=== PATIENT | male | born 1940 | race Caucasian/White ===

== ENCOUNTER 2018-07-20 10:41 | Emergency (ER) | payer MEDICARE ==
[2018-07-20] MEDS ORDERED: Sodium Chloride 0.9% 10 ML Syringe FLUSH PRN (11:29)
[2018-07-20] MEDS ORDERED: Labetalol 100 MG/20 ML MDV IVPUSH ONE (11:29)
[2018-07-20] MEDS ORDERED: Furosemide 40 MG/4 ML VIAL IVPUSH ONE (11:30)
--- NOTE | 2018-07-20 11:33 | EDM.PDOC ---
ED HPI GENERAL MEDICAL PROBLEM - General Chief Complaint: Cardiovascular Problem Stated Complaint: HIGH BP Time Seen by Provider: 07/20/18 11:30 Source of Information: Reports: Patient History Limitations: Reports: No Limitations - History of Present Illness INITIAL COMMENTS - FREE TEXT/NARRATIVE: pt had a home health nurse check his bp and found it to be very high and for that reason he was brought to the er. He did not feel dizzy or have a headache. Onset: Today Duration: Hour(s): Location: Reports: Chest, Other (bp is very elevated. ) Associated Symptoms: Reports: No Other Symptoms - Related Data Allergies Allergy/AdvReac Type Severity Reaction Status Date / Time No Known Allergies Allergy Verified 07/20/18 11:03 Home Meds: Home Meds Furosemide 40 mg PO DAILY 09/24/13 [History] Aspirin [Adult Low Dose Aspirin EC] 81 mg PO DAILY 11/07/13 [History] Metoprolol Succinate [Toprol XL 100mg] 100 mg PO DAILY 11/07/13 [History] Potassium Chloride [Klor-Con 10] 20 meq PO DAILY 11/07/13 [History] Warfarin Sliding Scale [Coumadin Sliding Scale] 5 mg PO ASDIRECTED 11/07/13 [ History] metFORMIN [Glucophage] 1,000 mg PO BIDM 11/07/13 [History] Lisinopril 10 mg PO DAILY 07/20/18 [History] Simvastatin 20 mg PO DAILY 07/20/18 [History] Past Medical History Cardiovascular History: Reports: Hypertension, Other (See Below) Other Cardiovascular History: on coumadin; unknown why Genitourinary History: Reports: Acute Renal Failure, Other (See Below) Other Genitourinary History: had an episode of acute kidney failure Musculoskeletal History: Reports: Arthritis - Past Surgical History Head Surgeries/Procedures: Reports: None Cardiovascular Surgical History: Reports: None Male Surgical History: Reports: None Musculoskeletal Surgical History: Reports: None Dermatological Surgical History: Reports: None Social & Family History - Family History Family Medical History: Noncontributory - Tobacco Use Smoking Status *Q: Former Smoker Years of Tobacco use: 20 Packs/Tins Daily: 1 Used Tobacco, but Quit: Yes Month/Year Tobacco Last Used: 06/1977 Second Hand Smoke Exposure: No - Caffeine Use Caffeine Use: Reports: Coffee, Soda - Recreational Drug Use Recreational Drug Use: No ED ROS GENERAL - Review of Systems Review Of Systems: See Below Constitutional: Reports: No Symptoms HEENT: Reports: No Symptoms Respiratory: Reports: No Symptoms Cardiovascular: Reports: Other (bp is very high over 200 systolic. ) Endocrine: Reports: No Symptoms GI/Abdominal: Reports: No Symptoms : Reports: No Symptoms Musculoskeletal: Reports: No Symptoms Skin: Reports: No Symptoms Neurological: Reports: No Symptoms ED EXAM, GENERAL - Physical Exam Exam: See Below Free Text/Narrative:: pt arrived with a elevated bp. His systolic was over 200. He had been taking his meds on a regular basis. Exam Limited By: No Limitations General Appearance: Alert, No Apparent Distress, Anxious, Other (pupils are equal and reactive. ) Ears: Normal TMs Nose: Normal Inspection Throat/Mouth: Normal Inspection Head: Atraumatic Neck: Normal Inspection Respiratory/Chest: No Respiratory Distress Cardiovascular: Regular Rate, Rhythm, Other ( bp is markedly elevated. ) GI/Abdominal: Soft, Non-Tender (Male) Exam: Deferred Rectal (Males) Exam: Deferred Back Exam: Normal Inspection Extremities: Normal Inspection Neurological: Alert, Oriented, Normal Cognition Psychiatric: Normal Affect Course - Vital Signs Last Recorded V/S: Last Vital Signs Temp 34.4 C L 07/20/18 11:01 Pulse 69 07/20/18 13:15 Resp 16 07/20/18 13:15 BP 154/61 H 07/20/18 13:15 Pulse Ox 99 07/20/18 13:15 - Orders/Labs/Meds Orders: Active Orders 24 hr Category Date Time Status Saline Lock Insert [OM.PC] Routine Oth 07/20/18 11:29 Ordered Labs: Laboratory Tests 07/20/18 07/20/18 07/20/18 Range/Units 11:40 11:40 11:40 WBC 5.6 (4.5-11.0) K/uL RBC 3.37 L (4.30-5.90) M/uL Hgb 9.7 L (12.0-15.0) g/dL Hct 29.2 L (40.0-54.0) % MCV 87 (80-98) fL MCH 29 (27-31) pg MCHC 33 (32-36) % Plt Count 179 (150-400) K/uL Neut % (Auto) 71 H (36-66) % Lymph % (Auto) 18 L (24-44) % [place] % (Auto) 8 H (2-6) % Eos % (Auto) 4 (2-4) % Baso % (Auto) 0 (0-1) % PT 24.4 H (9.5-12.0) sec INR 2.33 H D (0.80-1.20) Sodium 143 (140-148) mmol/L Potassium 5.6 H (3.6-5.2) mmol/L Chloride 109 H (100-108) mmol/L Carbon Dioxide 25 (21-32) mmol/L Anion Gap 14.6 H (5.0-14.0) mmol/L BUN 48 H (7-18) mg/dL Creatinine 2.0 H (0.8-1.3) mg/dL Est Cr Clr Drug Dosing 31.91 mL/min Estimated GFR (MDRD) 33 L (>60) Glucose 126 H (74-106) mg/dL Calcium 9.7 (8.5-10.1) mg/dL Iron (65-175) ug/dL TIBC (250-450) ug/dl % Saturation (20-55) % Total Bilirubin 0.6 D (0.2-1.0) mg/dL AST 21 (15-37) U/L ALT 24 (12-78) U/L Alkaline Phosphatase 65 D (46-116) U/L Total Protein 6.6 (6.4-8.2) g/dL Albumin 3.4 (3.4-5.0) g/dL Globulin 3.2 (2.3-3.5) g/dL Albumin/Globulin Ratio 1.1 L (1.2-2.2) Urine Color Urine Appearance Urine pH (4.5-8.0) Ur Specific [place]ran (1.008-1.030) Urine Protein (NEGATIVE) mg/dL Urine Glucose (UA) (NEGATIVE) mg/dL Urine Ketones (NEGATIVE) mg/dL Urine Occult Blood (NEGATIVE) Urine Nitrite (NEGAITVE) Urine Bilirubin (NEGATIVE) Urine Urobilinogen (NORMAL) mg/dL Ur Leukocyte Esterase (NEGATIVE) Urine RBC (0-5) Urine WBC (0-5) Ur Epithelial Cells Amorphous Sediment Urine Bacteria Urine Mucus 07/20/18 07/20/18 Range/Units 11:40 12:20 WBC (4.5-11.0) K/uL RBC (4.30-5.90) M/uL Hgb (12.0-15.0) g/dL Hct (40.0-54.0) % MCV (80-98) fL MCH (27-31) pg MCHC (32-36) % Plt Count (150-400) K/uL Neut % (Auto) (36-66) % Lymph % (Auto) (24-44) % [place] % (Auto) (2-6) % Eos % (Auto) (2-4) % Baso % (Auto) (0-1) % PT (9.5-12.0) sec INR (0.80-1.20) Sodium (140-148) mmol/L Potassium (3.6-5.2) mmol/L Chloride (100-108) mmol/L Carbon Dioxide (21-32) mmol/L Anion Gap (5.0-14.0) mmol/L BUN (7-18) mg/dL Creatinine (0.8-1.3) mg/dL Est Cr Clr Drug Dosing mL/min Estimated GFR (MDRD) (>60) Glucose (74-106) mg/dL Calcium (8.5-10.1) mg/dL Iron 63 L (65-175) ug/dL TIBC 210 L (250-450) ug/dl % Saturation 30 (20-55) % Total Bilirubin (0.2-1.0) mg/dL AST (15-37) U/L ALT (12-78) U/L Alkaline Phosphatase (46-116) U/L Total Protein (6.4-8.2) g/dL Albumin (3.4-5.0) g/dL Globulin (2.3-3.5) g/dL Albumin/Globulin Ratio (1.2-2.2) Urine Color Yellow Urine Appearance Slightly cloudy Urine pH 7.0 (4.5-8.0) Ur Specific [place] 1.005 L (1.008-1.030) Urine Protein 100 H (NEGATIVE) mg/dL Urine Glucose (UA) Normal (NEGATIVE) mg/dL Urine Ketones Negative (NEGATIVE) mg/dL Urine Occult Blood Large (NEGATIVE) Urine Nitrite Negative (NEGAITVE) Urine Bilirubin Negative (NEGATIVE) Urine Urobilinogen Normal (NORMAL) mg/dL Ur Leukocyte Esterase Negative (NEGATIVE) Urine RBC 0-5 (0-5) Urine WBC Not seen (0-5) Ur Epithelial Cells Not seen Amorphous Sediment Not seen Urine Bacteria Not seen Urine Mucus Not seen Meds: Medications Discontinued Medications Generic Name Dose Route Start Last Admin Trade Name Chuy PRN Reason Stop Dose Admin Furosemide 40 mg 07/20/18 11:30 07/20/18 12:27 Lasix IVPUSH 07/20/18 11:31 40 mg ONETIME ONE Administration Labetalol HCl 20 mg 07/20/18 11:29 07/20/18 12:34 Normodyne IVPUSH 07/20/18 11:30 Not Given ONETIME ONE Protocol Labetalol HCl 20 mg 07/20/18 12:15 07/20/18 12:32 Normodyne IVPUSH 07/20/18 12:16 20 mg ONETIME ONE Administration Protocol Lisinopril 2.5 mg 07/20/18 12:50 07/20/18 12:56 Prinivil PO 07/20/18 12:51 2.5 mg ONETIME ONE Administration Sodium Chloride 10 ml 07/20/18 11:29 Saline Flush FLUSH ASDIRECTED PRN Keep Vein Open - Re-Assessments/Exams Free Text/Narrative Re-Assessment/Exam: 07/21/18 07:52 pt was found to have a elevate k. His hg was 9.7 with no previous to compare with His creatnine is 2 with a elevated bun. He is on k. Departure - Departure Time of Disposition: 12:56 Disposition: Home, Self-Care 01 Condition: Fair Clinical Impression: Hypertension, Hyperkalemia, Anemia, Iron deficiency Instructions: Hypertension, [id number] Referrals: Gustavo Robles MD [Primary Care Provider] - Forms: ED Department Discharge Care Plan Goals: appt with Dr Robles in 4-5 days, increase lisinopril to 12.5 mg. --daily, stop potassium , Pt will be taking his usual lisinopril plus a 2.5 tablet. - My Orders Last 24 Hours: My Active Orders 07/20/18 11:29 Saline Lock Insert [OM.PC] Routine - Assessment/Plan Last 24 Hours: My Active Orders 07/20/18 11:29 Saline Lock Insert [OM.PC] Routine
[2018-07-20] MEDS ORDERED: Labetalol 20 MG/4 ML Syringe IVPUSH ONE (12:15)
[2018-07-20] MEDS ORDERED: Lisinopril 10 MG Tab PO ONE (12:50)
== END 2018-07-20 13:29 | disposition home or self-care (01) ==
LOC: JP.ED 10:41
DX: I10 Essential (primary) hypertension (principal); E87.5 Hyperkalemia; D50.9 Iron deficiency anemia, unspecified; Z87.891 Personal history of nicotine dependence; Z79.899 Other long term (current) drug therapy
CPT/HCPCS: 36415; 80053; 81001; 83550; 85025; 85610; 96374; 96375; 99284; A9270; J1940; J3490

== ENCOUNTER 2019-05-07 10:07 | Emergency (ER) | payer MEDICARE ==
[2019-05-07] MEDS ORDERED: LORazepam 0.5 MG Tab PO ONE (10:52)
--- NOTE | 2019-05-07 10:56 | EDM.PDOC ---
ED HPI GENERAL MEDICAL PROBLEM - General Chief Complaint: Cardiovascular Problem Stated Complaint: HYPERTENSION Time Seen by Provider: 05/07/19 10:31 Source of Information: Reports: Patient, Family, Old Records, RN Notes Reviewed History Limitations: Reports: No Limitations - History of Present Illness INITIAL COMMENTS - FREE TEXT/NARRATIVE: 78-year-old gentleman presents emergency department with a complaint of elevated blood pressure, he was being evaluated in the clinic by podiatry found to have elevated blood pressure in the 220 systolically was sent to the emergency department for further evaluation. He has no complaints at this time did take his blood pressure medications this morning at 1AM this is his usual wake up time - Related Data Allergies Allergy/AdvReac Type Severity Reaction Status Date / Time No Known Allergies Allergy Verified 07/20/18 11:03 Home Meds: Home Meds Furosemide 40 mg PO DAILY 09/24/13 [History] Aspirin [Adult Low Dose Aspirin EC] 81 mg PO DAILY 11/07/13 [History] Metoprolol Succinate [Toprol XL 100mg] 100 mg PO DAILY 11/07/13 [History] Warfarin Sliding Scale [Coumadin Sliding Scale] 5 mg PO ASDIRECTED 11/07/13 [ History] metFORMIN [Glucophage] 1,000 mg PO BIDM 11/07/13 [History] Lisinopril 20 mg PO DAILY 07/20/18 [History] Simvastatin 20 mg PO DAILY 07/20/18 [History] Past Medical History Cardiovascular History: Reports: Arrhythmia (Atrial flutter), High Cholesterol, Hypertension, Other (See Below) Other Cardiovascular History: on coumadin; unknown why Genitourinary History: Reports: Acute Renal Failure, Other (See Below) Other Genitourinary History: had an episode of acute kidney failure Musculoskeletal History: Reports: Arthritis - Infectious Disease History Infectious Disease History: Reports: Chicken Pox - Past Surgical History Head Surgeries/Procedures: Reports: None Cardiovascular Surgical History: Reports: None Male Surgical History: Reports: None Musculoskeletal Surgical History: Reports: None Dermatological Surgical History: Reports: None Social & Family History - Family History Family Medical History: Noncontributory - Tobacco Use Smoking Status *Q: Former Smoker Used Tobacco, but Quit: Yes Month/Year Tobacco Last Used: many years ago - Caffeine Use Caffeine Use: Reports: Coffee, Soda - Recreational Drug Use Recreational Drug Use: No ED ROS GENERAL - Review of Systems Review Of Systems: See Below Constitutional: Reports: No Symptoms HEENT: Reports: No Symptoms Respiratory: Reports: No Symptoms Cardiovascular: Reports: No Symptoms GI/Abdominal: Reports: No Symptoms ED EXAM, GENERAL - Physical Exam Exam: See Below Exam Limited By: No Limitations General Appearance: Alert, WD/WN, No Apparent Distress Throat/Mouth: No Airway Compromise Neck: Normal Inspection, Supple, Non-Tender, Full Range of Motion Respiratory/Chest: No Respiratory Distress, Lungs Clear, Normal Breath Sounds, No Accessory Muscle Use, Chest Non-Tender Cardiovascular: Regular Rate, Rhythm, No Murmur Course - Vital Signs Last Recorded V/S: Last Vital Signs Temp 97.9 F 05/07/19 10:26 Pulse 63 05/07/19 11:53 Resp 18 05/07/19 11:53 BP 186/80 H 05/07/19 11:53 Pulse Ox 96 05/07/19 11:53 - Orders/Labs/Meds Labs: Laboratory Tests 05/07/19 05/07/19 05/07/19 Range/Units 10:57 10:57 11:26 WBC 6.5 (4.5-11.0) K/uL RBC 3.65 L (4.30-5.90) M/uL Hgb 10.2 L (12.0-15.0) g/dL Hct 30.5 L (40.0-54.0) % MCV 84 (80-98) fL MCH 28 (27-31) pg MCHC 33 (32-36) % Plt Count 223 (150-400) K/uL Neut % (Auto) 73 H (36-66) % Lymph % (Auto) 14 L (24-44) % [place] % (Auto) 8 H (2-6) % Eos % (Auto) 4 (2-4) % Baso % (Auto) 0 (0-1) % Sodium 143 (140-148) mmol/L Potassium 4.5 (3.6-5.2) mmol/L Chloride 107 (100-108) mmol/L Carbon Dioxide 27 (21-32) mmol/L Anion Gap 9.3 (5.0-14.0) mmol/L BUN 54 H (7-18) mg/dL Creatinine 2.3 H (0.8-1.3) mg/dL Est Cr Clr Drug Dosing 27.32 mL/min Estimated GFR (MDRD) 28 L (>60) Glucose 164 H (74-106) mg/dL Lactic Acid 1.1 (0.4-2.0) mmol/L Calcium 9.4 (8.5-10.1) mg/dL Meds: Medications Discontinued Medications Generic Name Dose Route Start Last Admin Trade Name Chuy PRN Reason Stop Dose Admin Lorazepam 0.5 mg 05/07/19 10:52 05/07/19 10:56 Ativan PO 05/07/19 10:53 0.5 mg ONETIME ONE Administration Departure - Departure Time of Disposition: 12:09 Disposition: Home, Self-Care 01 Condition: Fair Clinical Impression: Hypertension Qualifiers: Hypertension type: essential hypertension Qualified Code(s): I10 - Essential ( primary) hypertension Referrals: Gustavo Robles MD [Primary Care Provider] - Forms: ED Department Discharge Additional Instructions: Continue with your regular medications, please follow-up with your primary care provider to review lab work as well as diabetic medication and blood pressure medication, call return to the emergency department for worsening of symptoms - Assessment/Plan Plan: Assessment Acuity = acute Site and laterality = hypertension essential poorly controlled Etiology = unknown Manifestations = none Location of injury = Home Lab values = hemoglobin low 10.2 consistent with normochromic anemia creatinine elevated consistent with chronic renal failure stage G4 creatinine is 2.3 lactic acid normal 1.1 Plan He had good improvement with Ativan brought his systolic blood pressure down to 185 from 220 fasting to follow-up with his primary care to review his blood pressure as well as his metformin and his chronic kidney disease This note was dictated using [employer] voice recognition software please call with any questions on syntax or grammar.
== END 2019-05-07 12:15 | disposition home or self-care (01) ==
LOC: JP.ED 10:07
DX: I10 Essential (primary) hypertension (principal); E78.00 Pure hypercholesterolemia, unspecified; Z79.82 Long term (current) use of aspirin; Z87.891 Personal history of nicotine dependence; Z79.84 Long term (current) use of oral hypoglycemic drugs; Z79.899 Other long term (current) drug therapy
CPT/HCPCS: 36415; 80048; 83605; 85025; 99283; A9270